=== PATIENT | male | born 1970 | race Caucasian/White ===

== ENCOUNTER → 2020-01-31 | Outpatient (CLI) | payer OTHER ==
[2020-01-31 08:22] LABS: ALBUMIN 4.1 g/dL (3.5-5.0); POTASSIUM 3.9 mmol/L (3.5-5.1)
[2020-01-31 08:23] LABS: CALCIUM 9.6 mg/dL (8.3-10.5)
[2020-01-31 08:25] LABS: TOTAL PROTEIN 6.8 g/dL (6.4-8.3)
[2020-01-31 08:26] LABS: TOTAL BILIRUBIN 0.6 mg/dL (0.2-1.2)
== END ==
LOC: LAB 01-29 17:22
PROVIDERS: Family Medicine
DX: Z12.5 Encounter for screening for malignant neoplasm of prostate (principal); Z13.1 Encounter for screening for diabetes mellitus; Z13.6 Encounter for screening for cardiovascular disorders; Z02.89 Encounter for other administrative examinations; I10 Essential (primary) hypertension

== ENCOUNTER → 2020-09-11 | Outpatient (CLI) | payer OTHER | LOC: LAB 09:15 | DX: R05 Cough (principal); R09.89 Other specified symptoms and signs involving the circulatory and respiratory systems; Z20.828 Contact with and (suspected) exposure to other viral communicable diseases ==

== ENCOUNTER → 2021-02-05 | Outpatient (CLI) | payer OTHER ==
[2021-02-05 10:10] LABS: ALBUMIN 4.1 g/dL (3.5-5.0); POTASSIUM 4.2 mmol/L (3.5-5.1)
[2021-02-05 10:11] LABS: CALCIUM 9.1 mg/dL (8.3-10.5)
[2021-02-05 10:12] LABS: TOTAL PROTEIN 7.2 g/dL (6.4-8.3)
[2021-02-05 10:14] LABS: TOTAL BILIRUBIN 0.6 mg/dL (0.2-1.2)
== END ==
LOC: LAB 09:33
PROVIDERS: Family Medicine
DX: Z00.00 Encounter for general adult medical examination without abnormal findings (principal); Z13.1 Encounter for screening for diabetes mellitus; Z12.5 Encounter for screening for malignant neoplasm of prostate; Z13.220 Encounter for screening for lipoid disorders; I10 Essential (primary) hypertension

== ENCOUNTER → 2021-06-30 | Day surgery (SDC) | payer BC | END | disposition home or self-care (01) | LOC: MSO 07:14 | DX: Z12.11 Encounter for screening for malignant neoplasm of colon (principal); K21.00 Gastro-esophageal reflux disease with esophagitis, without bleeding; I10 Essential (primary) hypertension; E66.9 Obesity, unspecified; Z79.899 Other long term (current) drug therapy | CPT/HCPCS: 00813; J2704; J7120 ==

== ENCOUNTER 2021-11-29 14:24 | Emergency (ER) | payer BC ==
[~2021-11-29] VITALS: Ht 185.4 cm; Wt 117.0 kg
[2021-11-29] MEDS ORDERED: LISINOPRIL20 MG PO (14:56)
[2021-11-29] MEDS ORDERED: PANTOPRAZOLE SO40 MG PO (14:57)
[2021-11-29 15:16] LABS: BASO # 0.01 K/mm3 (0.02-0.10); EOS # 0.02 K/mm3 (0.04-0.40); EOS % 0.7 % (0.0-4.0); HEMATOCRIT 48.5 % (42.0-52.0); LYMPH# 0.93 K/mm3 (1.50-4.00); MEAN CELL VOLUME 95 fl (78-100); MEAN CORPUSCULAR HEMOGLOBIN 31 pg (27-31); MEAN CORPUSCULAR HGB CONC 33 g/dL (33-37); MEAN PLATELET VOLUME 10.4 fl (7.4-10.4); MONO # 0.28 K/mm3 (0.20-0.80); NEU # 1.75 K/mm3 (1.40-6.50); PLATELET COUNT 145 K/mm3 (130-400); RED BLOOD COUNT 5.09 M/mm3 (4.20-5.60); RED CELL DISTRIBUTION WIDTH 12.6 % (11.5-14.5)
[2021-11-29 15:28] LABS: POTASSIUM 4.5 mmol/L (3.5-5.1)
[2021-11-29 15:29] LABS: CALCIUM 9.3 mg/dL (8.3-10.5)
[2021-11-29 15:31] LABS: TOTAL PROTEIN 7.2 g/dL (6.4-8.3)
[2021-11-29 15:32] LABS: TOTAL BILIRUBIN 0.5 mg/dL (0.2-1.2)
[2021-11-29 16:02] VITALS: BP 135/89
== END 2021-11-29 16:05 | disposition home or self-care (01) ==
LOC: ED 14:24
PROVIDERS: Physician Assistant
DX: U07.1 COVID-19 (principal); I10 Essential (primary) hypertension; Z79.899 Other long term (current) drug therapy

== ENCOUNTER → 2022-05-20 | Outpatient (CLI) | payer BC ==
[~2022-05-20] MED LIST: LISINOPRIL20 MG PO; PANTOPRAZOLE SO40 MG PO
[2022-05-20 08:22] LABS: POTASSIUM 4.3 mmol/L (3.5-5.1)
[2022-05-20 08:23] LABS: ALBUMIN 4.3 g/dL (3.5-5.0)
[2022-05-20 08:24] LABS: CALCIUM 9.6 mg/dL (8.3-10.5)
[2022-05-20 08:25] LABS: TOTAL PROTEIN 7.3 g/dL (6.4-8.3)
[2022-05-20 08:27] LABS: TOTAL BILIRUBIN 0.7 mg/dL (0.2-1.2)
== END ==
LOC: LAB 06:59
PROVIDERS: Family Medicine
DX: Z13.1 Encounter for screening for diabetes mellitus (principal); Z13.220 Encounter for screening for lipoid disorders; Z12.5 Encounter for screening for malignant neoplasm of prostate; I10 Essential (primary) hypertension

== ENCOUNTER → 2024-09-11 | Outpatient (CLI) | payer BC ==
[2024-09-11 17:22] LABS: ALBUMIN 4.4 g/dL (3.5-5.0)
[2024-09-11 17:25] LABS: TOTAL PROTEIN 7.4 g/dL (6.4-8.3)
[2024-09-11 17:26] LABS: TOTAL BILIRUBIN 0.5 mg/dL (0.2-1.2)
== END ==
LOC: LAB 17:01
PROVIDERS: Family Medicine
DX: Z13.1 Encounter for screening for diabetes mellitus (principal); Z13.220 Encounter for screening for lipoid disorders; Z12.5 Encounter for screening for malignant neoplasm of prostate; I10 Essential (primary) hypertension